=== PATIENT | male | born 1965 | race Caucasian/White ===

== ENCOUNTER 2019-02-24 12:48 | Inpatient (IN) | payer BC ==
--- NOTE | 2019-02-24 13:04 | ER Document Report ---
ED Cardiac - General Chief Complaint: Chest Pain Stated Complaint: CHEST PAIN Time Seen by Provider: 02/24/19 12:59 TRAVEL OUTSIDE OF THE [place] IN LAST 30 DAYS: No - HPI Notes: Patient is a 53-year-old male that presents to the emergency department for chief complaint of chest pain. Patient reports substernal chest pain that began today. He describes it as severe. He has associated shortness of breath. Patient is clasping at his chest and groaning. He is not providing much more HPI because of acuity of condition. He does deny any blood thinning medications or history of SC in the past. Past Medical History: Hypertension COPD Past Surgical History: Reviewed in chart Social History: Reviewed in chart Family History: Reviewed and noncontributory for presenting illness Allergies: Reviewed, see documented allergy list. REVIEW OF SYSTEMS: Unable to obtain full ROS because of acuity of condition PHYSICAL EXAMINATION: Vital signs reviewed, nursing noted reviewed. GENERAL: Ill-appearing, diaphoretic, in moderate distress HEAD: Atraumatic, normocephalic. EYES: Eyes appear normal, extraocular movements intact, sclera anicteric, conjunctiva are normal. ENT: nares patent, oropharynx clear without exudates. Moist mucous membranes. NECK: Normal range of motion, supple without lymphadenopathy LUNGS: Breath sounds clear to auscultation bilaterally and equal. No wheezes rales or rhonchi. HEART: Regular rate and rhythm without murmurs, +2/4 bilateral radial and DP pulses ABDOMEN: Soft, nontender, normoactive bowel sounds. No rebound, guarding, or rigidity. No pulsatile masses appreciated. EXTREMITIES: Nontender, good range of motion, no pitting or edema. NEUROLOGICAL: No focal neurological deficits. Moves all extremities spontaneously Motor and sensory grossly intact on exam. PSYCH: Very agitated, groaning SKIN: Warm, Dry, normal turgor, no rashes or lesions noted on exposed skin Past Medical History - Social History Smoking Status: Unknown if Ever Smoked Family History: Reviewed & Not Pertinent Physical Exam - Vital signs Vitals: Resp BP Pulse Ox 26 H 167/123 H 96 02/24/19 12:57 02/24/19 12:57 02/24/19 12:57 Course - Re-evaluation Re-evalutation: 02/24/19 13:03 Vitals reviewed. Nursing notes reviewed. Patient presented to the emergency room questing his chest and groaning. He did have what appeared to be a syncopal episode while nursing was placing an IV. He responded to sternal rub and returned to a GCS of 14. Patient loses 1 point a GCS scale for verbal because he is intermittently answering questions and groaning. Initial EKG shows multiform PVCs with no STEMI 02/24/19 14:50 Patient's repeat EKG was unchanged from initial and still has no STEMI. His CT chest abdomen pelvis shows no aortic dissection, AAA, or pulmonary embolism. Patient also has no pneumothorax. His initial troponin is negative. The remainder of his work-up is unremarkable. On reevaluation patient now has a GCS of 15. He is sitting up in bed and in no acute distress. He now reports he has a history of syncope but has not had issues previously. He states he had a syncopal episode in his car but did not have a car accident. He pushed the [employer] button when he woke up who directed him to the emergency room. Patient is hemodynamically stable alert and in no acute distress currently. His hypertension has resolved without treatment and currently his blood pressure is 134/75. He will be admitted to the hospital for telemetry monitoring and further cardiac evaluation. Patient's care discussed with Gomez Vicente NP who accepts admission. Laboratory 02/24/19 02/24/19 02/24/19 12:58 12:58 12:58 WBC 7.7 RBC 4.99 Hgb 15.9 Hct 45.7 MCV 92 MCH 31.9 MCHC 34.8 RDW 13.9 Plt Count 223 Lymph % (Auto) 34.5 Anderson % (Auto) 7.5 Eos % (Auto) 2.4 Baso % (Auto) 0.9 Absolute Neuts (auto) 4.2 Absolute Lymphs (auto) 2.7 Absolute Monos (auto) 0.6 Absolute Eos (auto) 0.2 Absolute Basos (auto) 0.1 Seg Neutrophils % 54.7 Sodium 141.1 Potassium 4.2 Chloride 99 Carbon Dioxide 34 H Anion Gap 8 BUN 12 Creatinine 1.00 Est GFR ( Amer) > 60 Est GFR (MDRD) Non-Af > 60 Glucose 112 H Calcium 9.2 Total Bilirubin 0.4 Direct Bilirubin 0.3 Neonat Total Bilirubin Not Reportable Neonat Direct Bilirubin Not Reportable Neonat Indirect Bili Not Reportable AST 36 ALT 47 Alkaline Phosphatase 87 Troponin I < 0.012 Total Protein 7.2 Albumin 4.4 Serum Alcohol 02/24/19 12:58 WBC RBC Hgb Hct MCV MCH MCHC RDW Plt Count Lymph % (Auto) Anderson % (Auto) Eos % (Auto) Baso % (Auto) Absolute Neuts (auto) Absolute Lymphs (auto) Absolute Monos (auto) Absolute Eos (auto) Absolute Basos (auto) Seg Neutrophils % Sodium Potassium Chloride Carbon Dioxide Anion Gap BUN Creatinine Est GFR ( Amer) Est GFR (MDRD) Non-Af Glucose Calcium Total Bilirubin Direct Bilirubin Neonat Total Bilirubin Neonat Direct Bilirubin Neonat Indirect Bili AST ALT Alkaline Phosphatase Troponin I Total Protein Albumin Serum Alcohol < 10 Abdomen/Pelvis CTA 02/24/19 12:59 IMPRESSION: No CT angio evidence of abdominal aortic aneurysm or abdominal aortic dissection. No CT evidence of bowel obstruction or free intraperitoneal air or fluid. Chest/Abdomen CTA 02/24/19 12:59 IMPRESSION: No CT angio evidence of thoracic aortic dissection or acute pulmonary emboli. 02/24/19 14:52 - Vital Signs Vital signs: Temp Pulse Resp BP Pulse Ox 23 H 134/75 H 96 02/24/19 14:02 02/24/19 14:02 02/24/19 14:02 - Laboratory Result Diagrams: 02/24/19 12:58 02/24/19 12:58 Laboratory results interpreted by me: 02/24/19 12:58 Carbon Dioxide 34 H Glucose 112 H - EKG Interpretation by Me Additional EKG results interpreted by me: 02/24/19 13:07 Interpreted by myself 1253: Normal sinus rhythm, rate 95, multiform PACs, normal axis, no STEMI 02/24/19 13:30 Interpreted by myself 1322: Normal sinus rhythm, rate 82, normal axis, no STEMI, unchanged from initial EKG Discharge - Discharge Clinical Impression: Syncope and collapse Chest pain Qualifiers: Chest pain type: unspecified Qualified Code(s): R07.9 - Chest pain, unspecified Condition: Stable Disposition: ADMITTED OBSERVATION Admitting Provider: Yohan (Hospitalist) Unit Admitted: Telemetry
[2019-02-24 13:09] LABS: ABSOLUTE BASOPHILS # (AUTO) 0.1 10^3/uL (0.0-0.2); ABSOLUTE EOSINOPHILS # (AUTO) 0.2 10^3/uL (0.0-0.6); ABSOLUTE LYMPHOCYTES (AUTO) 2.7 10^3/uL (0.5-4.7); ABSOLUTE MONOCYTES (AUTO) 0.6 10^3/uL (0.1-1.4); ABSOLUTE NEUT (AUTO) 4.2 10^3/uL (1.7-8.2); BASOPHILS % (AUTO) 0.9 % (0-2); EOSINOPHILS % (AUTO) 2.4 % (0-6); HEMATOCRIT 45.7 % (37.9-51.0); HEMOGLOBIN 15.9 g/dL (13.5-17.0); LYMPHOCYTES % (AUTO) 34.5 % (13-45); MEAN CORPUSCULAR HEMOGLOBIN 31.9 pg (27.0-33.4); MEAN CORPUSCULAR HGB CONC 34.8 g/dL (32.0-36.0); MEAN CORPUSCULAR VOLUME 92 fl (80-97); MONOCYTES % (AUTO) 7.5 % (3-13); PLATELET COUNT 223 10^3/uL (150-450); RED BLOOD COUNT 4.99 10^6/uL (4.35-5.55); RED CELL DISTRIBUTION WIDTH 13.9 % (11.5-14.0); SEGMENTED NEUTROPHILS % (AUTO) 54.7 % (42-78); TOTAL CELLS COUNTED % (AUTO) 100 %; WHITE BLOOD COUNT 7.7 10^3/uL (4.0-10.5)
[2019-02-24 13:29] LABS: ALBUMIN 4.4 g/dL (3.5-5.0); ALKALINE PHOSPHATASE 87 U/L (38-126); ANION GAP 8 (5-19); ASPARTATE AMINO TRANSFERASE 36 U/L (17-59); BILIRUBIN,DIRECT 0.3 mg/dL (0.0-0.4); BILIRUBIN,TOTAL 0.4 mg/dL (0.2-1.3); BLOOD UREA NITROGEN 12 mg/dL (7-20); CALCIUM 9.2 mg/dL (8.4-10.2); CARBON DIOXIDE 34 mmol/L (22-30); CHLORIDE 99 mmol/L (98-107); GLUCOSE 112 mg/dL (75-110); POTASSIUM 4.2 mmol/L (3.6-5.0); TOTAL PROTEIN 7.2 g/dL (6.3-8.2)
--- NOTE | 2019-02-24 13:44 | RADIOLOGY REPORT (SQ) ---
EXAM DESCRIPTION: CTA CHEST COMPLETED DATE/TIME: 02/24/2019 1:22 pm REASON FOR STUDY: dissection COMPARISON: CT ABDOMEN PELVIS SAME DATE TECHNIQUE: CT scan of the chest performed using helical scanning technique with dynamic intravenous contrast injection. Images reviewed with lung, soft tissue and bone windows. Reconstructed coronal and sagittal MPR images reviewed. Additional 3 dimensional post-processing performed to develop Maximal Intensity Projection images (TN P). All images stored on PACS. All CT scanners at this facility use dose modulation, iterative reconstruction, and/or weight based d osing when appropriate to reduce radiation dose to as low as reasonably achievable (ALARA). [facility]: Dose Right [facility]: CareDose [facility]: Dose Right [facility]: Teradose 4D [facility]: Medsurant Monitoring CONTRAST TYPE AND DOSE: contrast/concentration: Isovue 350.00 mg/ml; Total Contrast Delivered: 71.0 ml; Total Saline Delivered: 70.0 ml Contrast bolus optimized for the pulmonary arteries and thoracic aorta. RENAL FUNCTION: Deferred by emergency room physician RADIATION DOSE: 28 mGy . LIMITATIONS: None. FINDINGS: LUNGS AND PLEURA: Calcified granuloma right lateral costophrenic sulcus. Lungs are free o f focal infiltrates. No pleural effusion. No pneumothorax. AORTA AND GREAT VESSELS: No thoracic aortic aneurysm or dissection. Direct origin of the left verteb ral artery off the aorta, an anatomic variant HEART: No pericardial effusion. No significant coronary artery calcifications. PULMONARY ARTERIES: No emboli visualized in the main pulmonary arteries or the segmental branches. HILAR AND MEDIASTINAL STRUCTURES: 2 x 1 cm precarinal lymph node image 43, 1.8 x 1 cm AP window lymph node axial image 44. HARDWARE: None in the chest. UPPER ABDOMEN: No significant findings. Limited exam. THYROID AND OTHER SOFT TISSUES: No masses. No adenopathy. BONES: No acute or significant finding. 3D MIPS: Confirm above findings. OTHER: No other significant finding. IMPRESSION: No CT angio evidence of thoracic aortic dissection or acute pulmonary emboli. COMMENT: Quality ID # 436: Final reports with documentation of one or more dose reduction techniques (e.g., Automated exposure control, adjustment of the mA and/or kV according to patient size, use of iterative reconstruction technique) TECHNICAL DOCUMENTATION: JOB ID: [id number] [employer]- All Rights Reserved Reading location - IP/workstation name: [email or web address]
--- NOTE | 2019-02-24 13:48 | RADIOLOGY REPORT (SQ) ---
EXAM DESCRIPTION: CTA ABDOMEN/PELVIS W WO COMPLETED DATE/TIME: 02/24/2019 1:22 pm REASON FOR STUDY: dissection COMPARISON: CT angio chest same date TECHNIQUE: CT scan of the abdomen and pelvis performed with intravenous contrast using helical scann ing technique with dynamic intravenous contrast injection. Images reviewed with lung, soft tissue, an d bone windows. Reconstructed coronal and sagittal MPR images reviewed. All images stored on PACS. Advanced 3D imaging as volume rendering, MIPS, SSD performed? yes All CT scanners at this facility use dose modulation, iterative reconstruction, and/or weight based d osing when appropriate to reduce radiation dose to as low as reasonably achievable (ALARA). [facility]: Dose Right [facility]: CareDose [facility]: Dose Right [facility]: Teradose 4D [facility]: hi5 CONTRAST TYPE AND DOSE: 71 mL of IV Omnipaque 350- low osmolar. RENAL FUNCTION: Deferred by the emergency room physician LIMITATIONS: None. FINDINGS: AORTA AND VESSELS: No aneurysm. No dissection. Renal arteries, SMA, celiac without stenosi s. Bilateral duplicated renal arteries, an anatomic variant LUNG BASES: No significant findings. No nodules or infiltrates. LIVER: Normal size. No masses or dilated ducts. SPLEEN: Normal size. No focal lesions. PANCREAS: No masses. No significant calcifications. No adjacent inflammation or peripancreatic fluid collections. Pancreatic duct not dilated. GALLBLADDER: Contracted, not well seen ADRENAL GLANDS: No significant masses or asymmetry. RIGHT KIDNEY AND URETER: No mass, calculi or urinary tract obstruction. LEFT KIDNEY AND URETER: No mass, calculi or urinary tract obstruction. RETROPERITONEUM: No retroperitoneal adenopathy, hemorrhage or masses. BOWEL AND PERITONEAL CAVITY: No masses or inflammatory changes. No free fluid or peritoneal masses. APPENDIX: Normal. ABDOMINAL WALL: No masses. No hernias. BONY STRUCTURES: No significant or acute findings. PELVIS: No free fluid. No masses or adenopathy. No other significant finding. 3-D IMAGING: Confirms the above findings. IMPRESSION: No CT angio evidence of abdominal aortic aneurysm or abdominal aortic dissection. No CT evidence of bowel obstruction or free intraperitoneal air or fluid. TECHNICAL DOCUMENTATION: JOB ID: [id number] Quality ID # [id number]: Final reports with documentation of one or more dose reduction techniques (e.g., Au tomated exposure control, adjustment of the mA and/or kV according to patient size, use of iterative reconstruction technique) 2010 [employer]- All Rights Reserved Reading location - IP/workstation name: [email or web address]
[2019-02-24] MEDS ORDERED: ASPIRIN 81 MG TABLET, CHEWABLE PO ONE (14:37)
[2019-02-24] MEDS ORDERED: NITROGLYCERIN 0.4 MG/TAB 25 TAB/BOTTLE SL PRN (14:42)
[2019-02-24] MEDS ORDERED: MORPHINE SULFATE 10 MG/ML INJ IV ONE (15:10)
[2019-02-24] MEDS ORDERED: MORPHINE SULFATE 10 MG/ML INJ ONE (15:14)
[2019-02-24] MEDS ORDERED: NITROGLYCERIN 0.4 MG/TAB 25 TAB/BOTTLE ONE (15:15)
[2019-02-24] MEDS ORDERED: ASPIRIN 81 MG TABLET, CHEWABLE ONE ×2 (15:15→15:23)
[2019-02-24] MEDS ORDERED: ACETAMINOPHEN 325 MG TABLET PO PRN (15:23)
[2019-02-24] MEDS ORDERED: NORMAL SALINE 1000 ML 1,000 ML IV PRN (15:23)
[2019-02-24] MEDS ORDERED: OXYCODONE-ACETAMINOPHEN 5-325 MG TABLET PO PRN (15:23)
[2019-02-24] MEDS ORDERED: ONDANSETRON HCL INJ/PF 4 MG/2 ML SDV IV PRN (15:23)
[2019-02-24] MEDS ORDERED: TRAZODONE HCL 50 MG TABLET PO PRN (15:32)
--- NOTE | 2019-02-24 15:38 | Progress Note Acknowledgement ---
Progress Note Acknowledgement Progess Note Acknowledgement: I, the undersigned member of the medical staff with appropriate privileges and with supervisory authority over [Gomez Vicente], a dependent practice allied health professional, acknowledge that I have reviewed the progress notes entered on this patient, and in my professional judgment believe that the assessment made and/or any care evidenced was appropriate
[2019-02-24 15:46] LABS: APPEARANCE,URINE CLEAR; BILIRUBIN,URINE NEGATIVE (NEGATIVE); COLOR,URINE YELLOW; GLUCOSE, URINE NEGATIVE (NEGATIVE); KETONES,URINE NEGATIVE (NEGATIVE); LEUKOCYTE ESTERASE,URINE NEGATIVE (NEGATIVE); NITRITE,URINE NEGATIVE (NEGATIVE); PROTEIN,URINE NEGATIVE (NEGATIVE); URINE SPECIFIC GRAVITY 1.057; UROBILINOGEN,URINE NEGATIVE mg/dL (<2.0)
--- NOTE | 2019-02-24 15:53 | PDOC H&P ---
History of Present Illness Admission Date/PCP: 02/24/2019 No local primary care Patient complains of: Syncope, chest pain History of Present Illness: ABELARDO BUSTOS is a 53 year old male who states that her this afternoon he was lifting when sheet of drywall and became somewhat dizzy peed all over himself and had to put down drywall. Patient states he had one episode like this approximately 1 month ago in [place] and had a complex work-up although he does not know if he had an MRI. Patient had severe crushing chest pain in the ER as well as a syncopal type episode that ER doctor was not impressed with. Patient still states he has left upper chest pain although is not typical chest pain and the fact that it sounds muscular and is relieved with pressure. Patient also states his pain is 8 out of 10 and is showing no outward signs of compromise. Patient had no change in his EKG x2 and troponin is been negative x1. Patient noted treatment prior to arrival activities been aggravating factor. Past Medical History Cardiac Medical History: Reports: Hypertension Pulmonary Medical History: Reports: Pneumonia Endocrine Medical History: Reports: Diabetes Mellitus Type 2 Past Surgical History Past Surgical History: Reports: Other - Amputation left thumb Social History Information Source: Patient Lives with: Family Smoking Status: Former Smoker Frequency of Alcohol Use: None Hx Recreational Drug Use: No Drugs: None Hx Prescription Drug Abuse: No - Advance Directive Resuscitation Status: Full Code Family History Family History: Hyperlipidemia, Hypertension Parental Family History Reviewed: Yes Children Family History Reviewed: Yes Sibling(s) Family History Reviewed.: Yes Medication/Allergy Home Medications: Albuterol Sulfate [Proair Hfa Inhalation Aerosol 8.5 gm Mdi] 2 puff IH Q4HP PRN 02/24/19 Allopurinol [Zyloprim 100 mg Tablet] 100 mg PO DAILY 02/24/19 Atorvastatin Calcium [Lipitor 20 mg Tablet] 20 mg PO QHS 02/24/19 Escitalopram Oxalate [Lexapro 10 mg Tablet] 10 mg PO QHS 02/24/19 Lisinopril/Hydrochlorothiazide [Lisinopril-Hctz 20-25 mg Tab] 1 each PO DAILY 02/24/19 Metoprolol Succinate [Toprol Xl 25 mg Tab.sr] 25 mg PO DAILY 02/24/19 Trazodone HCl [Desyrel 50 mg Tablet] 100 mg PO HSP PRN 02/24/19 Review of Systems Constitutional: ABSENT: chills, fever(s), headache(s), weight gain, weight loss Eyes: ABSENT: visual disturbances Ears: ABSENT: hearing changes Cardiovascular: PRESENT: chest pain. ABSENT: dyspnea on exertion, edema, orthropnea, palpitations Respiratory: ABSENT: cough, hemoptysis Gastrointestinal: ABSENT: abdominal pain, constipation, diarrhea, hematemesis, hematochezia, nausea, vomiting Genitourinary: ABSENT: dysuria, hematuria Musculoskeletal: ABSENT: joint swelling Integumentary: ABSENT: rash, wounds Neurological: PRESENT: syncope. ABSENT: abnormal gait, abnormal speech, confusion, dizziness, focal weakness Psychiatric: ABSENT: anxiety, depression, homidical ideation, suicidal ideation Endocrine: ABSENT: cold intolerance, heat intolerance, polydipsia, polyuria Hematologic/Lymphatic: ABSENT: easy bleeding, easy bruising Physical Exam Vital Signs: Temp Pulse Resp BP Pulse Ox 23 H 122/93 H 96 02/24/19 15:01 02/24/19 15:01 02/24/19 15:01 General appearance: PRESENT: no acute distress, well-developed, well-nourished Head exam: PRESENT: atraumatic, normocephalic Eye exam: PRESENT: conjunctiva pink, EOMI, PERRLA. ABSENT: scleral icterus Ear exam: PRESENT: normal external ear exam Mouth exam: PRESENT: moist, tongue midline Neck exam: ABSENT: carotid bruit, JVD, lymphadenopathy, thyromegaly Respiratory exam: PRESENT: clear to auscultation aleshia. ABSENT: rales, rhonchi, wheezes Cardiovascular exam: PRESENT: RRR. ABSENT: diastolic murmur, rubs, systolic murmur Pulses: PRESENT: normal dorsalis pedis pul Vascular exam: PRESENT: normal capillary refill GI/Abdominal exam: PRESENT: normal bowel sounds, soft. ABSENT: distended, guarding, mass, organolmegaly, rebound, tenderness Rectal exam: PRESENT: deferred Extremities exam: PRESENT: full ROM. ABSENT: calf tenderness, clubbing, pedal edema Neurological exam: PRESENT: alert, awake, oriented to person, oriented to place, oriented to time, oriented to situation, CN II-XII grossly intact. ABSENT: motor sensory deficit Psychiatric exam: PRESENT: appropriate affect, normal mood. ABSENT: homicidal ideation, suicidal ideation Skin exam: PRESENT: dry, intact, warm. ABSENT: cyanosis, rash Results Laboratory Results: 02/24/19 12:58 02/24/19 12:58 02/24/19 02/24/19 12:58 12:58 WBC 7.7 RBC 4.99 Hgb 15.9 Hct 45.7 MCV 92 MCH 31.9 MCHC 34.8 RDW 13.9 Plt Count 223 Seg Neutrophils % 54.7 Sodium 141.1 Potassium 4.2 Chloride 99 Carbon Dioxide 34 H Anion Gap 8 BUN 12 Creatinine 1.00 Est GFR ( Amer) > 60 Glucose 112 H Calcium 9.2 Total Bilirubin 0.4 AST 36 Alkaline Phosphatase 87 Total Protein 7.2 Albumin 4.4 02/24/19 12:58 Troponin I < 0.012 Impressions: Abdomen/Pelvis CTA 02/24/19 12:59 IMPRESSION: No CT angio evidence of abdominal aortic aneurysm or abdominal aortic dissection. No CT evidence of bowel obstruction or free intraperitoneal air or fluid. Chest/Abdomen CTA 02/24/19 12:59 IMPRESSION: No CT angio evidence of thoracic aortic dissection or acute pulmonary emboli. Assessment and Plan - Diagnosis (1) Syncope and collapse Is this a current diagnosis for this admission?: Yes Plan: 02/24/2019-unsure the etiology of the syncope. Patient reportedly had one episode similar to this 1 month ago in [facility] and had a complete work-up at that time. Patient did not know however if he had an MRI. Patient states that when he has this episode he can hear a squishing sound in his brain. I will do the complete work-up for syncope as well as MRI of the head to determine if there is any etiology for this syncope there. We will also perform echocardiogram and carotid Dopplers. (2) Chest pain Qualifiers: Chest pain type: unspecified Qualified Code(s): R07.9 - Chest pain, unspecified Is this a current diagnosis for this admission?: Yes Plan: 02/24/2019-I do not believe this to be cardiac in nature. However, I will perform so troponins and an echocardiogram. If patient shows a bump in his creatinine's we will treat as appropriate. Patient is having left-sided chest pain at this time but I feel this is more muscular in nature. Patient was lifting heavy materials at the time of this incident so I suspect this is chest wall costochondritis. - Time Time Spent with patient: 35 or more minutes
[2019-02-24 16:02] LABS: URINE AMPHETAMINES SCREEN NEGATIVE; URINE BARBITURATES SCREEN NEGATIVE; URINE BENZODIAZEPINES SCREEN NEGATIVE; URINE COCAINE SCREEN NEGATIVE; URINE MARIJUANA (THC) SCREEN NEGATIVE; URINE METHADONE SCREEN NEGATIVE; URINE PHENCYCLIDINE SCREEN NEGATIVE
[2019-02-24] MEDS ORDERED: DEXTROSE 50%-WATER 25 GM/50 ML DISP.SYRIN IV PRN ×2 (17:22)
[2019-02-24] MEDS ORDERED: GLUCAGON,HUMAN RECOMB 1 MG INJ SUBCUT PRN (17:22)
[2019-02-24] MEDS ORDERED: DEXTROSE 40% GEL 15 GM TUBE PO PRN ×2 (17:22)
--- NOTE | 2019-02-24 18:01 | RADIOLOGY REPORT (SQ) ---
EXAM DESCRIPTION: MRI HEAD WITHOUT COMPLETED DATE/TIME: 02/24/2019 5:36 pm REASON FOR STUDY: syncope COMPARISON: None. TECHNIQUE: Multiplanar imaging includes non-contrasted T1, T2, FLAIR, and diffusion with ADC map seq uences. Images stored on PACS. LIMITATIONS: Patient motion. The study had to be ended due to patient motion secondary to itching. FINDINGS: ANATOMY: No anomalies. Normal vascular flow voids. Pituitary fossa normal. CSF SPACES: Normal in size and contour. No hemorrhage. CEREBRUM: Sulci and gyri normal in size and contour. Normal white matter signal on FLAIR imaging. No evidence of hemorrhage, mass, or extraaxial fluid collection. POSTERIOR FOSSA: No signal alteration. No hemorrhage. No edema, masses or mass effect. Internal stacie tory canals, cerebello-pontine angles, mastoids normal. DIFFUSION IMAGING: Negative for acute or sub-acute infarction. ORBITS: No masses. Globes normal. PARANASAL SINUSES: No fluid levels. Mucosa normal. OTHER: No other significant finding. IMPRESSION: Limited study due to motion. No gross abnormalities. No acute infarct or mass lesion. EVIDENCE OF ACUTE STROKE: NO. TECHNICAL DOCUMENTATION: JOB ID: [id number] [employer]- All Rights Reserved Reading location - IP/workstation name: [email or web address]
--- NOTE | 2019-02-24 18:10 | PDOC TRANSFER SUMMARY ---
General Admission Date/PCP: 02/24/19 15:42 Transfer Date: 02/24/19 Accepting Facility[facility] (Comments) [facility] Resuscitation Status: Full Code - Transfer Diagnosis (1) Syncope and collapse Is this a current diagnosis for this admission?: Yes (2) Chest pain Is this a current diagnosis for this admission?: Yes - Transfer Medications Home Medications: Albuterol Sulfate [Proair HFA Inhalation Aerosol 8.5 gm MDI] 2 puff IH Q4HP PRN 02/24/19 Allopurinol [Zyloprim 100 mg Tablet] 100 mg PO DAILY 02/24/19 Atorvastatin Calcium [Lipitor 20 mg Tablet] 20 mg PO QHS 02/24/19 Escitalopram Oxalate [Lexapro 10 mg Tablet] 10 mg PO QHS 02/24/19 Lisinopril/Hydrochlorothiazide [Lisinopril-Hctz 20-25 mg Tab] 1 each PO DAILY 02/24/19 Trazodone HCl [Desyrel 50 mg Tablet] 100 mg PO HSP PRN 02/24/19 Transfer Medications: Current Medications Acetaminophen (Tylenol 325 Mg Tablet) 650 mg PO Q4HP PRN PRN Reason: FOR PAIN Stop: 03/26/19 15:22 Allopurinol (Zyloprim 100 Mg Tablet) 100 mg PO DAILY TAY Stop: 03/27/19 09:59 Aspirin (Aspirin 325 Mg Tablet) 325 mg PO DAILY TAY Stop: 03/27/19 09:59 Atorvastatin Calcium (Lipitor 20 Mg Tablet) 20 mg PO QHS TAY Stop: 03/26/19 21:59 Dextrose (Dextrose Inj 50% Syringe (25 Gm/50 Ml)) 12.5 gm IV PRN PRN; Protocol PRN Reason: FOR BG 50-69 IN ALERT PATIENT Stop: 03/26/19 17:21 Dextrose (Dextrose Inj 50% Syringe (25 Gm/50 Ml)) 25 gm IV PRN PRN; Protocol PRN Reason: See Label Comments Stop: 03/26/19 17:21 Escitalopram Oxalate (Lexapro 10 Mg Tablet) 10 mg PO QHS TAY Stop: 03/26/19 21:59 Glucagon (Glucagen Inj 1 Mg Vial) 1 mg SUBCUT PRN PRN; Protocol PRN Reason: Evaluate for BG < 70 Stop: 03/26/19 17:21 Glucose (Glutose 40% Gel 15 Gm Tube) 15 gm PO PRN PRN; Protocol PRN Reason: For BG 50-69 in Alert Patient Stop: 03/26/19 17:21 Glucose (Glutose 40% Gel 15 Gm Tube) 30 gm PO PRN PRN; Protocol PRN Reason: FOR BG < 50 IN ALERT PATIENT Stop: 03/26/19 17:21 Heparin Sodium (Porcine) (Heparin Inj 5,000 Units/Ml 1 Ml Vial) 5,000 unit SUBCUT Q8 TAY Stop: 03/26/19 21:59 Hydrochlorothiazide (Hydrodiuril 25 Mg Tablet) 25 mg PO DAILY TAY Stop: 03/27/19 09:59 Sodium Chloride (Nacl 0.9% 1000 Ml Iv Soln) 1,000 mls @ 100 mls/hr IV CONTINUOUS PRN PRN Reason: THIS MED IS NOT "PRN" Stop: 03/26/19 15:22 Lisinopril (Prinivil 10 Mg Tablet) 20 mg PO DAILY [facility] Stop: 03/27/19 09:59 Nitroglycerin (Nitrostat 0.4 Mg (1/150 Gr) Tabs 25/Bottle) 1 tab SL ASDIR PRN PRN Reason: chest pain Ondansetron HCl (Zofran Inj/Pf 4 Mg/2 Ml Sdv) 4 mg IV Q8HP PRN PRN Reason: FOR NAUSEA/VOMITING Stop: 03/26/19 15:22 Oxycodone/Acetaminophen (Percocet 5-325 Mg Tablet) 1 tab PO Q4HP PRN PRN Reason: FOR PAIN Stop: 03/03/19 15:22 Sodium Chloride (Saline Flush 2.5 Ml Monoject Prefil Syrin) 2.5 ml IV Q8 [facility] Stop: 03/26/19 21:59 Trazodone HCl (Desyrel 50 Mg Tablet) 100 mg PO HSP PRN PRN Reason: SLEEP OR INSOMNIA Stop: 03/26/19 15:31 - Allergies Allergies/Adverse Reactions: No Known Allergies Allergy (Unverified 02/24/19 17:49) Hospital Course Hospital Course: Patient was admitted to [facility] with telemetry had another syncopal event on the floor. I suspect this most likely secondary to bradycardia as patient was in the 20s in the ER. Transfer patient to ICU downgraded in IMCU status and discussed patient with cardiology at [facility] who has accepted patient transfer. Patient did receive his MRI here await results. Patient may be transferred back after evaluation at [facility]. I spoke with and the accepting physician is . Physical Exam Vital Signs: Temp Pulse Resp BP Pulse Ox 98.4 F 83 24 H 138/88 H 99 02/24/19 17:38 02/24/19 17:38 02/24/19 18:00 02/24/19 17:41 02/24/19 18:00 Intake & Output 02/23/19 02/24/19 02/25/19 06:59 06:59 06:59 Weight 84.7 kg General appearance: PRESENT: no acute distress, well-developed, well-nourished Head exam: PRESENT: atraumatic, normocephalic Eye exam: PRESENT: conjunctiva pink, EOMI, PERRLA. ABSENT: scleral icterus Ear exam: PRESENT: normal external ear exam Mouth exam: PRESENT: moist, tongue midline Neck exam: ABSENT: carotid bruit, JVD, lymphadenopathy, thyromegaly Respiratory exam: PRESENT: clear to auscultation aleshia. ABSENT: rales, rhonchi, wheezes Cardiovascular exam: PRESENT: RRR. ABSENT: diastolic murmur, rubs, systolic murmur Pulses: PRESENT: normal dorsalis pedis pul Vascular exam: PRESENT: normal capillary refill GI/Abdominal exam: PRESENT: normal bowel sounds, soft. ABSENT: distended, guarding, mass, organolmegaly, rebound, tenderness Rectal exam: PRESENT: deferred Extremities exam: PRESENT: full ROM. ABSENT: calf tenderness, clubbing, pedal edema Neurological exam: PRESENT: alert, awake, oriented to person, oriented to place, oriented to time, oriented to situation, CN II-XII grossly intact. ABSENT: motor sensory deficit Psychiatric exam: PRESENT: appropriate affect, normal mood. ABSENT: homicidal ideation, suicidal ideation Skin exam: PRESENT: dry, intact, warm. ABSENT: cyanosis, rash Results Laboratory Results: 02/24/19 12:58 02/24/19 12:58 02/24/19 02/24/19 02/24/19 12:58 12:58 15:25 WBC 7.7 RBC 4.99 Hgb 15.9 Hct 45.7 MCV 92 MCH 31.9 MCHC 34.8 RDW 13.9 Plt Count 223 Seg Neutrophils % 54.7 Sodium 141.1 Potassium 4.2 Chloride 99 Carbon Dioxide 34 H Anion Gap 8 BUN 12 Creatinine 1.00 Est GFR ( Amer) > 60 Glucose 112 H Calcium 9.2 Total Bilirubin 0.4 AST 36 Alkaline Phosphatase 87 Total Protein 7.2 Albumin 4.4 Urine Color YELLOW Urine Appearance CLEAR Urine pH 7.0 Ur Specific [place] 1.057 Urine Protein NEGATIVE Urine Glucose (UA) NEGATIVE Urine Ketones NEGATIVE Urine Blood NEGATIVE Urine Nitrite NEGATIVE Ur Leukocyte Esterase NEGATIVE Urine WBC (Auto) 0 Urine RBC (Auto) 1 02/24/19 12:58 Troponin I < 0.012 Impressions: Head MRI 02/24/19 00:00 IMPRESSION: Limited study due to motion. No gross abnormalities. No acute infarct or mass lesion. EVIDENCE OF ACUTE STROKE: NO. Abdomen/Pelvis CTA 02/24/19 12:59 IMPRESSION: No CT angio evidence of abdominal aortic aneurysm or abdominal aortic dissection. No CT evidence of bowel obstruction or free intraperitoneal air or fluid. Chest/Abdomen CTA 02/24/19 12:59 IMPRESSION: No CT angio evidence of thoracic aortic dissection or acute pulmonary emboli. Plan Time Spent: Greater than 30 Minutes
[2019-02-24 21:17] VITALS: BP 142/81
[2019-02-24] MEDS ORDERED: ESCITALOPRAM OXALATE 10 MG TABLET PO SCH (22:00)
[2019-02-24] MEDS ORDERED: HEPARIN SOD (PORCINE) 5,000 UNIT/ML 1 ML VIAL SUBCUT SCH (22:00)
[2019-02-24] MEDS ORDERED: ATORVASTATIN CALCIUM 20 MG TABLET PO SCH (22:00)
--- NOTE | 2019-02-24 23:31 | EKG REPORT ---
SEVERITY:- ABNORMAL ECG - SINUS RHYTHM SUPRAVENTRICULAR BIGEMINY : Confirmed by: Sylwia Harrell 24-Feb-2019 23:30:34
--- NOTE | 2019-02-24 23:31 | EKG REPORT ---
SEVERITY:- ABNORMAL ECG - SINUS RHYTHM MULTIPLE ATRIAL PREMATURE COMPLEXES : Confirmed by: Sylwia Harrell 24-Feb-2019 23:30:47
--- NOTE | 2019-02-24 23:32 | EKG REPORT ---
SEVERITY:- ABNORMAL ECG - SINUS TACHYCARDIA MULTIFORM VENTRICULAR PREMATURE COMPLEXES VS ABBERANT APCs : Confirmed by: Sylwia Harrell 24-Feb-2019 23:31:40
[2019-02-25] MEDS ORDERED: LISINOPRIL 10 MG TABLET PO SCH (10:00)
[2019-02-25] MEDS ORDERED: METOPROLOL SUCCINATE 25 MG TAB.SR.24H PO SCH (10:00)
[2019-02-25] MEDS ORDERED: HYDROCHLOROTHIAZIDE 25 MG TABLET PO SCH (10:00)
[2019-02-25] MEDS ORDERED: ALLOPURINOL 100 MG TABLET PO SCH (10:00)
[2019-02-25] MEDS ORDERED: (PENDING PHARMACY ID) (Lisinopril/Hydrochlorothiazide [Lisinopril-Hctz 20-25 Mg Tab] 1 EAC PO SCH (10:00)
[2019-02-25] MEDS ORDERED: ASPIRIN 325 MG TABLET PO SCH (10:00)
== END 2019-02-24 21:20 | disposition short-term general hospital (02) | DRG 310 ==
LOC: ER 12:48 → OBSVTOIN 15:42 → EH 15:42 → 4N 16:30 → ICU 17:36
PROVIDERS: ADMIT Hospitalist; ATTEND Hospitalist
DX: R00.1 Bradycardia, unspecified (principal); R55 Syncope and collapse; R07.9 Chest pain, unspecified; I10 Essential (primary) hypertension; E11.9 Type 2 diabetes mellitus without complications; J44.9 Chronic obstructive pulmonary disease, unspecified; R40.2412 Glasgow coma scale score 13-15, at arrival to emergency department; Z79.899 Other long term (current) drug therapy; Z89.012 Acquired absence of left thumb; Z87.891 Personal history of nicotine dependence; Z82.49 Family history of ischemic heart disease and other diseases of the circulatory system
CPT/HCPCS: 36415; 70551; 71275; 74174; 80053; 80307; 81001; 84484; 85025; 93005; 93010; J2270